=== PATIENT | male | born 1955 ===

== ENCOUNTER 2017-11-16 05:45 | Day surgery (SDC) | payer OTHER ==
[~2017-11-16] VITALS: Ht 175.3 cm; Wt 85.3 kg
[~2017-11-16 05:45] MED LIST: Acyclovir200 MG PO
[2018-06-17] MEDS ORDERED: Coq-1030 MG (07:48)
[2018-06-17] MEDS ORDERED: Aspir-Low81 MG (07:48)
[2018-06-17] MEDS ORDERED: MULTI VITAMIN1 EACH (07:49)
== END 2017-11-16 22:57 | disposition home or self-care (01) ==
LOC: ORSCMMR 05:45
PROVIDERS: Surgery
PROC: 06BY0ZC Excision of Hemorrhoidal Plexus, Open Approach (ICD-10-PCS; principal; 2017-11-16 08:00)
PROC: 0DBH8ZX Excision of Cecum, Via Natural or Artificial Opening Endoscopic, Diagnostic (ICD-10-PCS; principal; 2017-11-16 08:00)
PROC: 0DBN8ZX Excision of Sigmoid Colon, Via Natural or Artificial Opening Endoscopic, Diagnostic (ICD-10-PCS; principal; 2017-11-16 08:00)
DX: K62.5 Hemorrhage of anus and rectum (principal); C18.7 Malignant neoplasm of sigmoid colon; D12.0 Benign neoplasm of cecum; K63.5 Polyp of colon; K64.2 Third degree hemorrhoids; K57.30 Diverticulosis of large intestine without perforation or abscess without bleeding; I10 Essential (primary) hypertension; Z87.891 Personal history of nicotine dependence; Z79.899 Other long term (current) drug therapy
CPT/HCPCS: 88304; 88305; J1100; J2250; J2405; J3010; J7120

== ENCOUNTER 2019-05-04 08:21 | Day surgery (SDC) | payer OTHER ==
[~2019-05-04] VITALS: Ht 175.3 cm; Wt 84.6 kg
[~2019-05-04 08:21] MED LIST changes: +Aspir-Low81 MG; +Coq-1030 MG; +MULTI VITAMIN1 EACH
--- NOTE | 2019-05-04 09:29 | NUR ---
05/04/19 0928 RADHA STOVER ONE BAD IV DUE TO VALVES, NOT WANTING TO ADVANCE. ONE GOOD IV BY KEANU IN [facility]
== END 2019-05-04 11:19 | disposition home or self-care (01) ==
LOC: ORSCSDS 08:21
PROVIDERS: Surgery
PROC: 0DBN8ZX Excision of Sigmoid Colon, Via Natural or Artificial Opening Endoscopic, Diagnostic (ICD-10-PCS; principal; 2019-05-04 09:45)
PROC: 0DBK8ZX Excision of Ascending Colon, Via Natural or Artificial Opening Endoscopic, Diagnostic (ICD-10-PCS; principal; 2019-05-04 09:45)
DX: Z12.11 Encounter for screening for malignant neoplasm of colon (principal); Z86.010 Personal history of colon polyps; D12.2 Benign neoplasm of ascending colon; D12.5 Benign neoplasm of sigmoid colon; K57.30 Diverticulosis of large intestine without perforation or abscess without bleeding; I10 Essential (primary) hypertension; E78.5 Hyperlipidemia, unspecified; Z79.899 Other long term (current) drug therapy
CPT/HCPCS: 88305; J2704; J7120

== ENCOUNTER 2022-08-04 09:13 | Day surgery (SDC) | payer MEDICARE ==
[~2022-08-04] VITALS: Ht 175.3 cm; Wt 81.2 kg
[2022-08-04] MEDS ORDERED: METO25ER (09:31)
[2022-08-04] MEDS ORDERED: EZET10 (09:31)
== END 2022-08-04 11:20 | disposition home or self-care (01) ==
LOC: ORSCSDS 09:13
PROVIDERS: Surgery
PROC: 0DBN8ZX Excision of Sigmoid Colon, Via Natural or Artificial Opening Endoscopic, Diagnostic (ICD-10-PCS; principal; 2022-08-04 10:30)
DX: Z12.11 Encounter for screening for malignant neoplasm of colon (principal); Z86.010 Personal history of colon polyps; D12.5 Benign neoplasm of sigmoid colon; I10 Essential (primary) hypertension; E78.5 Hyperlipidemia, unspecified; Z79.899 Other long term (current) drug therapy
CPT/HCPCS: 88305; J2704; J7120